=== PATIENT | male | born 1950 | race Caucasian/White ===

== ENCOUNTER 2019-09-16 15:13 | Emergency (ER) | payer OTHER ==
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
[2019-09-16] MEDS ORDERED: SODIUM CHLORIDE 0.9% 1000ML 500 ML IVS ONE (16:19)
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
[2019-09-16] MEDS ORDERED: METOPROLOL TARTRATE INJ 5 MG/5 ML VIAL IV ONE ×2 (17:09→17:19)
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
[2019-09-16] MEDS ORDERED: fentaNYL CITRATE INJ 50 MCG/ML AMP ONE (17:34)
[2019-09-16] MEDS ORDERED: fentaNYL CITRATE INJ 50 MCG/ML AMP IV ONE (17:39)
[2019-09-16 17:46] VITALS: BP 189/99; TEMP 98.7; O2SAT 95
== END 2019-09-16 17:45 | disposition short-term general hospital (02) ==
LOC: ER 15:13
DX: S12.201A Unspecified nondisplaced fracture of third cervical vertebra, initial encounter for closed fracture (principal); S22.001A Stable burst fracture of unspecified thoracic vertebra, initial encounter for closed fracture; S01.01XA Laceration without foreign body of scalp, initial encounter; S22.20XA Unspecified fracture of sternum, initial encounter for closed fracture; S00.03XA Contusion of scalp, initial encounter; S29.9XXA Unspecified injury of thorax, initial encounter; R07.89 Other chest pain; E11.9 Type 2 diabetes mellitus without complications; J44.9 Chronic obstructive pulmonary disease, unspecified; V89.0XXA Person injured in unspecified motor-vehicle accident, nontraffic, initial encounter; Y92.410 Unspecified street and highway as the place of occurrence of the external cause
CPT/HCPCS: 36415; 70450; 71250; 71275; 72125; 74176; 74177; 80053; 80320; 82150; 82550; 82553; 83880; 84484; 85025; 85610; 85730; J3010; J7030